=== PATIENT | male | born 1965 | race African-American/Black ===

== ENCOUNTER 2018-05-11 13:49 | Emergency (ER) | payer OTHER ==
[~2018-05-11] VITALS: Ht 170.2 cm; Wt 77.1 kg
[2018-05-11 14:11] VITALS: BP 145/81; Ht 170.2 cm; Wt 77.1 kg
== END 2018-05-11 14:42 | disposition home or self-care (01) ==
LOC: ED 13:49
DX: S39.012A Strain of muscle, fascia and tendon of lower back, initial encounter (principal); S16.1XXA Strain of muscle, fascia and tendon at neck level, initial encounter; V69.49XA Driver of heavy transport vehicle injured in collision with other motor vehicles in traffic accident, initial encounter; Y93.I9 Activity, other involving external motion; Y92.413 State road as the place of occurrence of the external cause; Y99.8 Other external cause status